=== PATIENT | female | born 1960 | race African-American/Black ===

== ENCOUNTER 2016-11-22 13:26 | Inpatient (IN) | payer OTHER ==
[2016-11-22 16:33] VITALS: BMI 21.5
--- NOTE | 2016-11-22 16:33 | HP ---
CIWA Score - CIWA Score Nausea/Vomitin-Mild Nausea/No Vomiting Muscle Tremors: 4-Moderate,w/Arms Extend Anxiety: 4-Mod. Anxious/Guarded Agitation: 4-Moderately Restless Paroxysmal Sweats: 1-Minimal Palms Moist Orientation: 0-Oriented Tacttile Disturbances: 0-None Auditory Disturbances: 0-None Visual Disturbances: 0-None Headache: 0-None Present CIWA-Ar Total Score: 14 Admission ROS BHS - HPI Chief Complaint: withdrawal sx Allergies/Adverse Reactions: Allergies Allergy/AdvReac Type Severity Reaction Status Date / Time No Known Allergies Allergy Verified 11/22/16 16:13 History of Present Illness: 56 years old female with long history of alcohol nicotine dependence, has hiv, positive ppd, borderline diabetes ii, has depression is admitted to detox Exam Limitations: No Limitations - Ebola screening Have you traveled outside of the country in the last 21 days: No Have you had contact with anyone from an Ebola affected area: No Have you been sick,other than usual withdrawal symptoms: No Do you have a fever: No - Review of Systems Constitutional: Chills, Changes in sleep, Weight Stable EENT: reports: No Symptoms Reported Respiratory: reports: SOB with Exertion Cardiac: reports: Palpitations GI: reports: Nausea, Poor Fluid Intake, Abdominal cramping : reports: No Symptoms Reported Musculoskeletal: reports: No Symptoms Reported Integumentary: reports: Rash (extremities x 2 years) Neuro: reports: Tremors Endocrine: reports: No Symptoms Reported Hematology: reports: No Symptoms Reported Psychiatric: reports: Judgement Intact, Orientated x3, Depressed Other Systems: Reviewed and Negative Patient History - Patient Medical History Hx Anemia: No Hx Asthma: No Hx Chronic Obstructive Pulmonary Disease (COPD): No Hx Cancer: No Hx Cardiac Disorders: No Hx Congestive Heart Failure: No Hx Hypertension: No Hx Hypercholesterolemia: No Hx Pacemaker: No HX Cerebrovascular Accident: No Hx Seizures: No Hx Dementia: No Hx Diabetes: Yes (borderline dietary control) Hx Gastrointestinal Disorders: Yes (gerd by history) Hx Liver Disease: No Hx Genitourinary Disorders: No Hx Sexually Transmitted Disorders: Yes Hx Renal Disease (ESRD): No Hx Thyroid Disease: No Hx Human Immunodeficiency Virus (HIV): No Hx Hepatitis C: Yes (treating x 2 weeks own medication x 10 more weeks) Hx Depression: Yes Hx Suicide Attempt: No Hx Bipolar Disorder: No Hx Schizophrenia: No - Patient Surgical History Past Surgical History: Yes Hx Neurologic Surgery: No Hx Cataract Extraction: No Hx Cardiac Surgery: No Hx Lung Surgery: No Hx Breast Surgery: No Hx Breast Biopsy: No Hx Abdominal Surgery: Yes (atopic 2001) Hx Appendectomy: No Hx Cholecystectomy: No Hx Genitourinary Surgery: No Hx Section: No Hx Orthopedic Surgery: Yes (shoulders 2005) Hx Hysterectomy: No Anesthesia Reaction: No - PPD History Previous Implant?: Yes Documented Results: Positive w/o proof Implanted On Prior [facility] Admission?: No PPD to be Administered?: No - Reproductive History Patient is a Female of Child Bearing Age (11 -55 yrs old): Yes Last Menstrual Period: 12/15/11 Patient : No - Smoking Cessation Smoking history: Current every day smoker Have you smoked in the past 12 months: Yes Aproximately how many cigarettes per day: 40 Cigars Per Day: 0 Hx Chewing Tobacco Use: No Initiated information on smoking cessation: Yes 'Breaking Loose' booklet given: 11/22/16 - Substance & Tx. History Hx Alcohol Use: Yes Hx Substance Use: Yes Substance Use Type: Alcohol, Cocaine Hx Substance Use Treatment: Yes - Substances Abused Alcohol Route: Oral Frequency: Daily Amount used: 12 pack 16oz beer Age of first use: 12 Date of Last Use: 11/22/16 Family Disease History - Family Disease History Family Disease History: Heart Disease: Mother, [place]: Sister () Admission Physical Exam [facility] - Physical General Appearance: Yes: Appropriately Dressed, Mild Distress, Thin, Tremorous, Irritable, Sweating, Anxious HEENTM: Yes: Hearing grossly Normal, Normal ENT Inspection, Normocephalic, Normal Voice Respiratory: Yes: Chest Non-Tender, Lungs Clear, Normal Breath Sounds, No Respiratory Distress, No Accessory Muscle Use Neck: Yes: Supple, Trachea in good position Cardiology: Yes: Regular Rhythm, Regular Rate, S1, S2 Abdominal: Yes: Non Tender, Soft, Increased Bowel Sounds Genitourinary: Yes: Within Normal Limits Back: Yes: Normal Inspection Musculoskeletal: Yes: full range of Motion, Gait Steady Extremities: Yes: Normal Range of Motion, Non-Tender, Tremors, Other ( hyperpigmented rashes arms and legs) Neurological: Yes: Fully Oriented, Alert, Motor Strength 5/5, Normal Response, Depressed Affect Integumentary: Yes: Warm, Rash (arms and legs) Lymphatic: Yes: Within Normal Limits - Diagnostic (1) Alcohol dependence with uncomplicated withdrawal Current Visit: Yes Status: Acute (2) Cocaine dependence, uncomplicated Current Visit: Yes Status: Chronic (3) Hepatitis C antibody test positive Current Visit: Yes Status: Acute Comment: treating with epclusa 400-100 mg second week end begin third week total 12 weeks (4) Positive PPD, treated Current Visit: Yes Status: Resolved (5) Borderline diabetes mellitus Current Visit: Yes Status: Inactive Comment: dietary control (6) Nicotine dependence Current Visit: Yes Status: Acute Qualifiers: Nicotine product type: cigarettes Substance use status: in withdrawal Qualified Code(s): F17.213 - Nicotine dependence, cigarettes, with withdrawal (7) Depression (emotion) Current Visit: Yes Status: Suspected Qualifiers: Depression Type: dysthymia Qualified Code(s): F34.1 - Dysthymic disorder Cleared for Admission BHS - Detox or Rehab S Level of Care: Medically Managed Detox Regimen/Protocol: Librium BHS Breath Alcohol Content Breath Alcohol Content: 0 Vital Signs - Vital Signs Vital Signs Refused: No Temperature: 98.4 F Temperature Source: Oral Pulse Rate: 75 Respiratory Rate: 20 Blood Pressure: 119/65 BP Location: Left Arm Blood Pressure Position: Sitting - Height Height: 5 ft 2 in - Weight Weight: 118 lb Weight Measurement Method: Standing Scale Body Mass Index (BMI): 21.5 - Bowel Function Bowel Movement: Yes Urine Pregancy Test - Result Urine Test Results: Negative- NO Line Present Urine Drug Screen - Control Is Test Valid: Yes - Results Drug Screen Negative: No Urine Drug Screen Results: SANTY-Cocaine
[2016-11-22] MEDS ORDERED: ACETAMINOPHEN 325 MG TABLET (FP) PO PRN (16:42)
[2016-11-22] MEDS ORDERED: MAG HYDROX/AL HYDROX/SIMETH 30 ML UNIT-DOSE CUP PO PRN (16:42)
[2016-11-22] MEDS ORDERED: MENTHOL/PHENOL 1 EACH UD MM PRN (16:42)
[2016-11-22] MEDS ORDERED: guaiFENesin/D-METHORPHAN HB 10 ML UNIT-DOSE CUPS PO PRN (16:42)
[2016-11-22] MEDS ORDERED: P-EPHED 60MG/TRIPROLIDI 2.5MG TABLET PO PRN (16:42)
[2016-11-22] MEDS ORDERED: MAGNESIUM HYDROX 2400MG/30ML ORAL SUSPENSION 30 ML CUP PO PRN (16:42)
[2016-11-22] MEDS ORDERED: MAGNESIUM CITRATE 300 ML BOTTLE PO PRN (16:42)
[2016-11-22] MEDS ORDERED: NICOTINE POLACRILEX 2 MG GUM BUC PRN (16:42)
[2016-11-22] MEDS ORDERED: chlordiazePOXIDE HCL 25 MG CAPSULE PO PRN (16:42)
[2016-11-22] MEDS ORDERED: LOPERAMIDE HCL 2 MG CAPSULE PO PRN (16:42)
[2016-11-22] MEDS ORDERED: diphenhydrAMINE HCL 50 MG CAPSULE PO PRN (22:00)
[2016-11-22] MEDS: THIAMINE HCL 100 MG TABLET (FP) PO SCH (22:46)
[2016-11-22] MEDS ORDERED: diphenhydrAMINE HCL 25 MG CAPSULE (FP) PO ONE (22:47)
[2016-11-22] MEDS: chlordiazePOXIDE HCL 25 MG CAPSULE PO SCH (22:47)
[2016-11-22 23:14] LABS: URINE APPEARANCE CLEAR; URINE BILIRUBIN NEGATIVE (NEGATIVE); URINE BLOOD NEGATIVE (NEGATIVE); URINE COLOR YELLOW; URINE GLUCOSE (UA) NEGATIVE (NEGATIVE); URINE KETONE NEGATIVE (NEGATIVE); URINE LEUK ESTERASE NEGATIVE (NEGATIVE); URINE NITRITE NEGATIVE (NEGATIVE); URINE PROTEIN NEGATIVE (NEGATIVE); URINE UROBILINOGEN NEGATIVE E.U./dl (0.2-1.0)
[2016-11-23] MEDS: chlordiazePOXIDE HCL 25 MG CAPSULE PO SCH ×4 (06:07→22:49)
[2016-11-23 10:33] LABS: ALBUMIN 3.7 g/dl (3.4-5.0); BILIRUBIN,TOTAL 0.4 mg/dL (0.2-1.0); CALCIUM 8.9 mg/dL (8.5-10.1); CREATININE 1.2 mg/dL (0.55-1.02); MCH 31.3 pg (25.7-33.7); MCHC 33.3 g/dl (32.0-36.0); MEAN PLT VOLUME 9.9 fl (7.5-11.1); RDW 12.6 % (11.6-15.6); WHITE BLOOD COUNT 7.7 K/mm3 (4.0-10.0)
[2016-11-23] MEDS: PRENATAL VITAMINS W/ FOLIC ACID TABLET (FP) PO SCH (10:48)
[2016-11-23] MEDS: NICOTINE 21 MG/24 HOURS TOPICAL PATCH TD SCH (10:49)
[2016-11-23 11:03] LABS: HIV 1 & 2 AB NEGATIVE; HIV 1 AGp24 NEGATIVE
--- NOTE | 2016-11-23 11:14 | PN ---
[facility] CIWA - CIWA Score Nausea/Vomitin-No Nausea/No Vomiting Muscle Tremors: 4-Moderate,w/Arms Extend Anxiety: 3 Agitation: 4-Moderately Restless Paroxysmal Sweats: 3 Orientation: 0-Oriented Tacttile Disturbances: 0-None Auditory Disturbances: 0-None Visual Disturbances: 0-None Headache: 0-None Present CIWA-Ar Total Score: 14 BHS Progress Note (SOAP) Subjective: irritable agitation anxiety sweats interrupted sleep Objective: 11/23/16 11:13 Vital Signs Temperature 96.7 F L 11/23/16 07:05 Pulse Rate 67 11/23/16 07:05 Respiratory Rate 18 11/23/16 07:05 Blood Pressure 108/72 11/23/16 07:05 O2 Sat by Pulse Oximetry (%) Laboratory Tests 11/22/16 11/22/16 11/23/16 07:00 23:00 06:00 WBC 7.7 RBC 3.88 Hgb 12.2 Hct 36.5 MCV 94.0 MCHC 33.3 RDW 12.6 MPV 9.9 Sodium Potassium Chloride Carbon Dioxide Anion Gap BUN Creatinine Creat Clearance w eGFR Random Glucose Calcium Total Bilirubin AST ALT Alkaline Phosphatase Total Protein Albumin Urine Color Yellow Urine Appearance Clear Urine pH 7.0 Ur Specific [place] 1.019 Urine Protein Negative Urine Glucose (UA) Negative Urine Ketones Negative Urine Blood Negative Urine Nitrite Negative Urine Bilirubin Negative Urine Urobilinogen Negative Ur Leukocyte Esterase Negative HIV 1&2 Antibody Screen Negative HIV P24 Antigen Negative 11/23/16 06:00 WBC RBC Hgb Hct MCV MCHC RDW MPV Sodium 142 Potassium 4.1 Chloride 105 Carbon Dioxide 28 Anion Gap 9 BUN 18 Creatinine 1.2 H Creat Clearance w eGFR 46.82 Random Glucose 81 Calcium 8.9 Total Bilirubin 0.4 AST 17 ALT 20 Alkaline Phosphatase 103 Total Protein 8.0 Albumin 3.7 Urine Color Urine Appearance Urine pH Ur Specific [place] Urine Protein Urine Glucose (UA) Urine Ketones Urine Blood Urine Nitrite Urine Bilirubin Urine Urobilinogen Ur Leukocyte Esterase HIV 1&2 Antibody Screen HIV P24 Antigen awake/alert ambulating no acute distress Assessment: 11/23/16 11:14 withdrawal sx Plan: continue detox increase fluids labs pending
[2016-11-23] MEDS: PATIENT'S OWN MEDICATION (NON-FORMULARY) (Sofosbuvir/Velpatasvir [Epclusa 400 Mg-100 Mg Ta PO SCH (11:22)
[2016-11-23 12:38] LABS: PLATELET ESTIMATE ADEQUATE (NORMAL)
--- NOTE | 2016-11-23 14:12 | CONSULT ---
[facility] Psychiatric Consult - Data Date of interview: 11/23/16 Admission source: [facility] Identifying data: First admission to [facility] for this 56 y/o AA female seeking detox treatment on for alcohol and cocaine dependence.Patient is ,a mother of two,domiciled,disabled and supported on Social Security benefits. Substance Abuse History: - Smoking Cessation. Smoking history: Current every day smoker. Have you smoked in the past 12 months: Yes. Aproximately how many cigarettes per day: 40. Cigars Per Day: 0. Hx Chewing Tobacco Use: No. Initiated information on smoking cessation: Yes. 'Breaking Loose' booklet given : 11/22/16. - Substance & Tx. History. Hx Alcohol Use: Yes. Hx Substance Use : Yes. Substance Use Type: Alcohol, Cocaine. Hx Substance Use Treatment: Yes. - Substances Abused. Alcohol. Route: Oral. Frequency: Daily. Amount used: 12 pack 16oz beer. Age of first use: 12. Date of Last Use: 11/22/16. Confirmed by patient in this interview. Medical History: History of PPD (+),diabetes mellitus,GERD,hepatitis C,ectopic pregnancies X 2 and orthosurgery for bilateral rotator cuff damage. Psychiatric History: Patient denies. Physical/Sexual Abuse/Trauma History: Patient denies. Additional Comment: Urine Drug Screen Results: SANTY-Cocaine.Noted. Mental Status Exam - Mental Status Exam Alert and Oriented to: Time, Place, Person Cognitive Function: Good Patient Appearance: Well Groomed (petite,thin habitus) Mood: Hopeful, Euthymic Affect: Appropriate, Normal Range Patient Behavior: Fatigued, Talkative, Appropriate, Cooperative Speech Pattern: Clear, Appropriate Voice Loudness: Normal Thought Process: Goal Oriented Thought Disorder: Not Present Hallucinations: Denies Suicidal Ideation: Denies Homicidal Ideation: Denies Insight/Judgement: Fair Sleep: Well Appetite: Good Muscle strength/Tone: Normal Gait/Station: Normal Psychiatric Findings - Problem List ([place] 1, 2,3) (1) Alcohol dependence with uncomplicated withdrawal Current Visit: Yes Status: Acute (2) Nicotine dependence Current Visit: Yes Status: Acute Qualifiers: Nicotine product type: cigarettes Substance use status: in withdrawal Qualified Code(s): F17.213 - Nicotine dependence, cigarettes, with withdrawal (3) Cocaine dependence, uncomplicated Current Visit: Yes Status: Acute (4) Substance induced mood disorder Current Visit: Yes Status: Acute (5) Hepatitis C antibody test positive Current Visit: Yes Status: Acute Comment: treating with epclusa 400-100 mg second week end begin third week total 12 weeks (6) Positive PPD, treated Current Visit: Yes Status: Resolved (7) Borderline diabetes mellitus Current Visit: Yes Status: Inactive Comment: dietary control - Initial Treatment Plan Initial Treatment Plan: Psychoeducation.Detoxification.Observation.
--- NOTE | 2016-11-23 17:44 | EKG ---
Test Reason : Blood Pressure : / mmHG Vent. Rate : 069 BPM Atrial Rate : 069 BPM P-R Int : 182 ms QRS Dur : 084 ms QT Int : 420 ms P-R-T Axes : 059 061 048 degrees QTc Int : 450 ms NORMAL SINUS RHYTHM NORMAL ECG NO PREVIOUS ECGS AVAILABLE Confirmed by TAO SUTTON MD ([id number]) on 11/23/2016 5:43:34 PM Referred By: Confirmed By:TAO SUTTON MD
[2016-11-23] MEDS: THIAMINE HCL 100 MG TABLET (FP) PO SCH (22:48)
[2016-11-24] MEDS: chlordiazePOXIDE HCL 25 MG CAPSULE PO SCH ×3 (05:59→17:24)
[2016-11-24] MEDS: PATIENT'S OWN MEDICATION (NON-FORMULARY) (Sofosbuvir/Velpatasvir [Epclusa 400 Mg-100 Mg Ta PO SCH (10:22)
[2016-11-24] MEDS: PRENATAL VITAMINS W/ FOLIC ACID TABLET (FP) PO SCH (10:22)
[2016-11-24] MEDS: NICOTINE 21 MG/24 HOURS TOPICAL PATCH TD SCH (10:23)
--- NOTE | 2016-11-24 13:41 | PN ---
S CIWA - CIWA Score Nausea/Vomitin Muscle Tremors: 3 Anxiety: 3 Agitation: 2 Paroxysmal Sweats: 1-Minimal Palms Moist Orientation: 0-Oriented Tacttile Disturbances: 1-Very Mild Itch/Numbness Auditory Disturbances: 1-Very Mild Visual Disturbances: 1-Very Mild Sensitivity Headache: 2-Mild CIWA-Ar Total Score: 17 BHS Progress Note (SOAP) Subjective: ALERT,IRRITABLE,ANXIOUS,INTERRUPTED SLEEP,TREMOR Objective: 11/24/16 13:39 Vital Signs Temperature 98.2 F 11/24/16 10:20 Pulse Rate 86 11/24/16 10:20 Respiratory Rate 20 11/24/16 10:20 Blood Pressure 122/79 11/24/16 10:20 O2 Sat by Pulse Oximetry (%) EKG NSR,NORMAL ECG Laboratory Last Values WBC 7.7 K/mm3 (4.0-10.0) 11/23/16 06:00 RBC 3.88 M/mm3 (3.60-5.2) 11/23/16 06:00 Hgb 12.2 GM/dL (10.7-15.3) 11/23/16 06:00 Hct 36.5 % (32.4-45.2) 11/23/16 06:00 MCV 94.0 fl (80-96) 11/23/16 06:00 MCHC 33.3 g/dl (32.0-36.0) 11/23/16 06:00 RDW 12.6 % (11.6-15.6) 11/23/16 06:00 Plt Count Not Reportable 11/23/16 06:00 MPV 9.9 fl (7.5-11.1) 11/23/16 06:00 Platelet Estimate Adequate (NORMAL) 11/23/16 06:00 Platelet Comment Slt plt clumping 11/23/16 06:00 Sodium 142 mmol/L (136-145) 11/23/16 06:00 Potassium 4.1 mmol/L (3.5-5.1) 11/23/16 06:00 Chloride 105 mmol/L (98-107) 11/23/16 06:00 Carbon Dioxide 28 mmol/L (21-32) 11/23/16 06:00 Anion Gap 9 (8-16) 11/23/16 06:00 BUN 18 mg/dL (7-18) 11/23/16 06:00 Creatinine 1.2 mg/dL (0.55-1.02) H 11/23/16 06:00 Creat Clearance w eGFR 46.82 (>60) 11/23/16 06:00 Random Glucose 81 mg/dL (74-106) 11/23/16 06:00 Calcium 8.9 mg/dL (8.5-10.1) 11/23/16 06:00 Total Bilirubin 0.4 mg/dL (0.2-1.0) 11/23/16 06:00 AST 17 U/L (15-37) 11/23/16 06:00 ALT 20 U/L (12-78) 11/23/16 06:00 Alkaline Phosphatase 103 U/L (45-117) 11/23/16 06:00 Total Protein 8.0 g/dl (6.4-8.2) 11/23/16 06:00 Albumin 3.7 g/dl (3.4-5.0) 11/23/16 06:00 Urine Color Yellow 11/22/16 23:00 Urine Appearance Clear 11/22/16 23:00 Urine pH 7.0 (5.0-8.0) 11/22/16 23:00 Ur Specific [place] 1.019 (1.001-1.035) 11/22/16 23:00 Urine Protein Negative (NEGATIVE) 11/22/16 23:00 Urine Glucose (UA) Negative (NEGATIVE) 11/22/16 23:00 Urine Ketones Negative (NEGATIVE) 11/22/16 23:00 Urine Blood Negative (NEGATIVE) 11/22/16 23:00 Urine Nitrite Negative (NEGATIVE) 11/22/16 23:00 Urine Bilirubin Negative (NEGATIVE) 11/22/16 23:00 Urine Urobilinogen Negative E.U./dl (0.2-1.0) 11/22/16 23:00 Ur Leukocyte Esterase Negative (NEGATIVE) 11/22/16 23:00 RPR Titer Nonreactive (NONREACTIVE) 11/23/16 06:00 HIV 1&2 Antibody Screen Negative 11/22/16 07:00 HIV P24 Antigen Negative 11/22/16 07:00 Assessment: 11/24/16 13:40 WITHDRAWAL SYMPTOM Plan: CONTINUE DETOX
[2016-11-24 19:00] VITALS: BP 112/69; PULSE 91; TEMP 99.3
--- NOTE | 2016-11-24 19:08 | DS ---
[facility] Detox Discharge Summary Admission Date: 11/22/16 Discharge Date: 11/24/16 - History Present History: Alcohol Dependence, Cocaine Dependence Additional Comments: 56 YEARS OLD FEMALE ADMITTED FOR ALCOHOL DETOX, DETERMINED TO LEAVE THE FACILITY TODAY "I HAVE SOMETHING TO DO TODAY" DENIES SUICIDAL DENIES HOMICIDAL NO SELF DESTRUCTIVE BEHAVIOR ALERT ORIENTED X 3, AMBULATE STEADY GAIT, GOOD EYE CONTACT, SPEECH CLEARLY, CALM AND COOPERATIVE, FACE TO FACE WITH THE PATIENT, CONSEQUENCES OF AMA AND BENEFITS OF SOBRIETY PRESENTED TO THE PATIENT PATIENT AGREES TO ACCESS COMMUNITY SELF HELP RESOURCES Pertinent Past History: NICOTINE DEPENDENCE HEPATITIS C - Physical Exam Results Vital Signs: Vital Signs Temperature 99.7 F H 11/24/16 14:11 Pulse Rate 86 11/24/16 14:11 Respiratory Rate 18 11/24/16 14:11 Blood Pressure 122/74 11/24/16 14:11 O2 Sat by Pulse Oximetry (%) Pertinent Admission Physical Exam Findings: WITHDRAWAL SX Laboratory Last Values WBC 7.7 K/mm3 (4.0-10.0) 11/23/16 06:00 RBC 3.88 M/mm3 (3.60-5.2) 11/23/16 06:00 Hgb 12.2 GM/dL (10.7-15.3) 11/23/16 06:00 Hct 36.5 % (32.4-45.2) 11/23/16 06:00 MCV 94.0 fl (80-96) 11/23/16 06:00 MCHC 33.3 g/dl (32.0-36.0) 11/23/16 06:00 RDW 12.6 % (11.6-15.6) 11/23/16 06:00 Plt Count Not Reportable 11/23/16 06:00 MPV 9.9 fl (7.5-11.1) 11/23/16 06:00 Platelet Estimate Adequate (NORMAL) 11/23/16 06:00 Platelet Comment Slt plt clumping 11/23/16 06:00 Sodium 142 mmol/L (136-145) 11/23/16 06:00 Potassium 4.1 mmol/L (3.5-5.1) 11/23/16 06:00 Chloride 105 mmol/L (98-107) 11/23/16 06:00 Carbon Dioxide 28 mmol/L (21-32) 11/23/16 06:00 Anion Gap 9 (8-16) 11/23/16 06:00 BUN 18 mg/dL (7-18) 11/23/16 06:00 Creatinine 1.2 mg/dL (0.55-1.02) H 11/23/16 06:00 Creat Clearance w eGFR 46.82 (>60) 11/23/16 06:00 Random Glucose 81 mg/dL (74-106) 11/23/16 06:00 Calcium 8.9 mg/dL (8.5-10.1) 11/23/16 06:00 Total Bilirubin 0.4 mg/dL (0.2-1.0) 11/23/16 06:00 AST 17 U/L (15-37) 11/23/16 06:00 ALT 20 U/L (12-78) 11/23/16 06:00 Alkaline Phosphatase 103 U/L (45-117) 11/23/16 06:00 Total Protein 8.0 g/dl (6.4-8.2) 11/23/16 06:00 Albumin 3.7 g/dl (3.4-5.0) 11/23/16 06:00 Urine Color Yellow 11/22/16 23:00 Urine Appearance Clear 11/22/16 23:00 Urine pH 7.0 (5.0-8.0) 11/22/16 23:00 Ur Specific [place] 1.019 (1.001-1.035) 11/22/16 23:00 Urine Protein Negative (NEGATIVE) 11/22/16 23:00 Urine Glucose (UA) Negative (NEGATIVE) 11/22/16 23:00 Urine Ketones Negative (NEGATIVE) 11/22/16 23:00 Urine Blood Negative (NEGATIVE) 11/22/16 23:00 Urine Nitrite Negative (NEGATIVE) 11/22/16 23:00 Urine Bilirubin Negative (NEGATIVE) 11/22/16 23:00 Urine Urobilinogen Negative E.U./dl (0.2-1.0) 11/22/16 23:00 Ur Leukocyte Esterase Negative (NEGATIVE) 11/22/16 23:00 RPR Titer Nonreactive (NONREACTIVE) 11/23/16 06:00 HIV 1&2 Antibody Screen Negative 11/22/16 07:00 HIV P24 Antigen Negative 11/22/16 07:00 LAB NOTED - Treatment Hospital Course: Detox Protocol Followed, Responded well - Medication Discharge Medications: Ambulatory Orders Sofosbuvir/Velpatasvir [Epclusa 400 mg-100 mg Tablet] 1 each PO DAILY 11/22/16 - Diagnosis (1) Alcohol dependence with uncomplicated withdrawal Current Visit: Yes Status: Acute (2) Cocaine dependence, uncomplicated Current Visit: Yes Status: Chronic (3) Hepatitis C antibody test positive Current Visit: Yes Status: Acute (4) Nicotine dependence Current Visit: Yes Status: Acute Qualifiers: Nicotine product type: cigarettes Substance use status: in withdrawal Qualified Code(s): F17.213 - Nicotine dependence, cigarettes, with withdrawal - AMA Did Patient Leave Against Medical Advice: Yes
[2016-11-24] MEDS ORDERED: chlordiazePOXIDE 5 MG CAPSULE PO SCH (23:00)
[2016-11-25] MEDS ORDERED: chlordiazePOXIDE HCL 10 MG CAPSULE PO SCH (23:00)
== END 2016-11-24 19:00 | disposition left against medical advice (07) | DRG 894 ==
LOC: YASAS 13:26 → Y6N 17:16
PROVIDERS: ADMIT Internal Medicine; ATTEND Internal Medicine
PROC: HZ2ZZZZ Detoxification Services for Substance Abuse Treatment (ICD-10-PCS; principal; 2016-11-24)
DX: F10.230 Alcohol dependence with withdrawal, uncomplicated (principal); F14.20 Cocaine dependence, uncomplicated; F17.210 Nicotine dependence, cigarettes, uncomplicated; F34.1 Dysthymic disorder; F19.24 Other psychoactive substance dependence with psychoactive substance-induced mood disorder; B18.2 Chronic viral hepatitis C; E11.9 Type 2 diabetes mellitus without complications; R76.11 Nonspecific reaction to tuberculin skin test without active tuberculosis
CPT/HCPCS: 36415; 71020-TC; 80053; 81003; 85027; 86593; 87389; 93005; 93010